=== PATIENT | male | born 1985 | race Caucasian/White ===

== ENCOUNTER 2016-09-08 16:24 | Emergency (ER) | payer OTHER ==
--- NOTE | 2016-09-08 17:09 | ED ORDER SUMMARY ---
..... Patient: FATIMAH MARSHALL II OrderSheet [facility] VisitID: [id number] [address] [place] [address] 30y, M Registration Date/Time: 09/08/2016 ORDER SHEET Weight: 80.7 kg (stated) Allergies: No Known Drug Allergy GENERAL ORDERS: MEDICATION ORDERS: Clindamycin PO 300 mg (NOW) (16:59 09/08/2016 [facility] (Ack 16:59 DDean R.N.) (17:30 DDean R.N.) Prednisone PO 60 mg (NOW) (16:59 09/08/2016 Adriana MCGARRY) (Ack 17:00 DDean R.N.) (17:31 DDean R.N.) IV FLUIDS: ORDER SHEET NOTES: [Electronically signed by Joyce Silva R.N. (23:30 09/08/2016)] [Electronically signed by Rafa Nath DO (09:52 09/09/2016)] [Electronically locked/signed by Joyce Silva R.N. (23:30 09/08/2016)]
--- NOTE | 2016-09-08 17:09 | ED CLINICAL REPORT ---
Clinical Report - Physicians/Mid Levels [facility] [address] [place] [address] 09/08/2016 16:25 Patient: FATIMAH MARSHALL II Time Seen: 16:54. Arrived- By private vehicle. Historian- patient. Note: Patient has a primary care physician; PCP referred patient for evaluation. HISTORY OF PRESENT ILLNESS Chief Complaint: SORE THROAT. This started about 2 weeks ago and is still present. It was gradual in onset and has been waxing/waning. Pain described as moderate. The patient has had a sore throat with pain upon swallowing. He has been able to swallow. Similar symptoms previously: Recent medical care: The patient was seen recently in a clinic. REVIEW OF SYSTEMS No fever, eye discomfort, cough, difficulty breathing or chest pain. No diarrhea, abdominal pain, difficulty with urination, headache or fainting episodes. No joint pain, skin rash, enlarged lymph nodes or vomiting. All systems otherwise negative, except as recorded above. PAST HISTORY Asthma Chronic bronchitis, ADHD Arthritis. Surgeries: Dental surgery. bronchoscopy, EGD for episode of hematemeis. Surgeries: Dental surgery. SOCIAL HISTORY Former smoker, end date 2005. History of drug use: marijuana. No alcohol use. ADDITIONAL NOTES The nursing notes have been reviewed. PHYSICAL EXAM Vital Signs: 09/08/2016 16:55 BP: 132/89. HR: 88. RR: 18. O2 saturation: 100%. Temp: 98.4 F. Pain level now: 7/10. Appearance: Alert. No acute distress. Head: Normal external inspection. Eyes: Pupils equal, round and reactive to light. Conjunctivae and eyelids normal. ENT: Ears normal. Nose normal. Small left-sided peritonsillar mass (slight asymmetry). No pointing. Lips normal. Gums normal. No trismus present. No tonsillar exudate. Neck: Normal inspection. Moderate left anterior neck lymphadenopathy present. Trachea midline. Neck supple. CVS: Normal heart rate and rhythm. Heart sounds normal. Pulses normal. No cardiac murmur. Respiratory: No respiratory distress. Breath sounds normal. Abdomen: Soft and nontender. Skin: Normal skin color. No rash. Normal skin turgor. Extremities: Extremities exhibit normal ROM. Extremities nontender. Neuro: Oriented X 3. No motor deficit. LABS, X-RAYS, AND EKG Pulse Oximetry: 09/08/2016 16:55 O2 saturation: 100%. (FIO2 - room air). Interpretation: normal. PROGRESS AND PROCEDURES Course of Care: Prednisone 60 mg PO given. Clindamycin 300 mg PO given. Mild posterior pharyngeal asymmetry - left more prominent. No airway compromise. No systemic symptoms. Pt has been taking amoxicillin. Recent strep neg and mono spot neg as well. No indication for emergent surgical procedure. Pt will be referred to ENT (should be seen in 24-48 hours. Patient/family counseled. Old ED records reviewed. Disposition: Discharged. Condition: stable and improved. CLINICAL IMPRESSION Acute streptococcal pharyngitis Possible left peritonsillar abscess. No airway obstruction. INSTRUCTIONS Do not work for three days. Drink plenty of fluids. Warnings: Further evaluation is necessary. It is very important to follow up with a physician. GENERAL WARNINGS: Return or contact your physician immediately if your condition worsens or changes unexpectedly, if not improving as expected, or if other problems arise. Prescription Medications: Prednisone 20 mg: take 3 orally every day for 5 days. Dispense fifteen (15). No refills. Cleocin 300 mg: take 1 capsule orally every 6 hours for 7 days. No refills. Substitution is permissible. OTC Medications: Acetaminophen (available over the counter): take according to label instructions. Motrin (available over the counter): take according to label instructions. Follow-up with: Keith Neville MD, ENT, , [address], , [place], [address] Follow up tomorrow. Follow-up with: Johnny Funez MD, [facility], , [address] [facility], , [place], [address] Follow up in about two days. (Electronically signed by Rafa Nath DO 09/09/2016 9:52)
--- NOTE | 2016-09-08 17:09 | ED ORDER SUMMARY ---
..... Patient: FATIMAH MARSHALL II OrderSheet [facility] VisitID: [id number] [address] [place] [address] 30y, M Registration Date/Time: 09/08/2016 ORDER SHEET Weight: 80.7 kg (stated) Allergies: No Known Drug Allergy GENERAL ORDERS: MEDICATION ORDERS: Clindamycin PO 300 mg (NOW) (16:59 [facility]08[facility] (Ack 16:59 DDean R.N.) (17:30 DDean R.N.) Prednisone PO 60 mg (NOW) (16:59 09/08/2016 Adriana MCGARRY) (Ack 17:00 DDean R.N.) (17:31 DDean R.N.) IV FLUIDS: ORDER SHEET NOTES: [Electronically signed by Joyce Silva R.N. (23:30 09/08/2016)] [Electronically signed by Rafa Nath DO (09:52 09/09/2016)] [Electronically locked/signed by Joyce Silva R.N. (23:30 09/08/2016)]
--- NOTE | 2016-09-08 17:09 | ED NURSING NOTES ---
Clinical Report - Nurses [facility] [address] [place] [address] 09/08/2016 16:25 Patient: FATIMAH MARSHALL II TRIAGE Triage time 1655. Acuity: LEVEL 4. Chief Complaint: SORE THROAT and (Pt in by PCP direction, has been seen in office for sore throat x 2, was neg for strep and mono, has been getting worse dispite antibiotics , c/o left thorat swelling). 16:55. --17:06 Joyce Silva R.N. 16:55 09/08/16. BP: 132/89. HR: 88. RR: 18. O2 saturation: 100%. Temp: 98.4 F. Pain level now: 10/04. --17:06 Joyce Silva R.N. Weight: 80.7 kg stated. Height/Length: 67 inches Per Patient. BMI: 27.9. --17:03 Joyce Silva R.N. Medications amoxicillin ran out about 9 days ago. --17:05 Joyce Silva R.N. tylenol 1000mg 0730. --17:05 Joyce Silva R.N. Benadryl 25mg po at 2200. --17:06 Joyce Silva R.N. sudafed 2 tabs (hasn't taken for a couple of days) . --17:06 Joyce Silva R.N. Allergies No Known Drug Allergy. --17:05 Joyce Silva R.N. History Arrived by private vehicle. Historian: patient. Unaccompanied. Primary physician (talia). Reports enlarged lymph nodes. PAST MEDICAL HX: ( asthma, ADHD). SOCIAL HX: Former smoker (quit 11 years ago, was a a 1/2 ppd smoker for 6 years). Occasional alcohol use. (quit 3 years ago). History of drug use: marijuana. --17:06 Joyce Silva R.N. ADDITIONAL SURGERIES: Dental Surgery. --17:02 Joyce Silva R.N. Interventions ID band on patient. To treatment room. --17:06 Joyce Silva R.N. PHYSICAL ASSESSMENT 16:55. Ambulatory to room. GENERAL / NEURO / PSYCH: Alert. Oriented X 4. Appears anxious. HEENT: Voice within normal limits. ( swelling to left gland area, c/o sore throat " all over "). RESPIRATORY: Respirations not labored. CVS: Capillary refill less than 2 seconds. SKIN: Skin is warm and dry. --17:07 Joyce Silva R.N. NURSING PROGRESS NOTES 16:55. Head of bed elevated. Reassurance given. Patient identifiers checked. Call light placed in reach. Side rails up. Bed placed in lowest position. Patient ready for evaluation- chart flagged. --17:06 Joyce Silva R.N. 17:10 09/08/2016 Clindamycin PO Capsules 300 mg given. Allergies verified and confirmed 5 rights. --17:30 Joyce Silva R.N. 17:10 09/08/2016 Prednisone PO Tablets 60 mg given. Allergies verified and confirmed 5 rights. --17:31 Joyce Silva R.N. 17:10 Pt given meds and a sandwich. also given DC instructions. --17:31 Joyce Silva R.N. DISPOSITION / DISCHARGE 17:10. Condition at departure: unchanged and stable. No learning barriers present. Discharge instructions provided and reviewed with the patient. Reviewed medication(s) (medrol dosepack , clindamycin, motrin). Reviewed referral to an ear, nose, and throat specialist (dentist). Patient verbalized understanding. Written instructions provided in [place]. The patient was discharged home and unaccompanied at time of discharge. He left the Emergency Department ambulatory and via private vehicle. Patient driving. --17:32 Joyce Silva R.N. 17:07 09/08/16. BP: deferred. HR: deferred. RR: deferred. O2 saturation: deferred. Temp: deferred. Pain level now: 10/04. --17:32 Joyce Silva R.N. Locked/Released at 09/08/2016 23:30 by Joyce Silva R.N.
--- NOTE | 2016-09-08 17:09 | ED NURSING NOTES ---
Clinical Report - Nurses [facility] [address] [place] [address] 09/08/2016 16:25 Patient: FATIMAH MARSHALL II TRIAGE Triage time 1655. Acuity: LEVEL 4. Chief Complaint: SORE THROAT and (Pt in by PCP direction, has been seen in office for sore throat x 2, was neg for strep and mono, has been getting worse dispite antibiotics , c/o left thorat swelling). 16:55. --17:06 Joyce Silva R.N. 16:55 09/08/16. BP: 132/89. HR: 88. RR: 18. O2 saturation: 100%. Temp: 98.4 F. Pain level now: 10/04. --17:06 Joyce Silva R.N. Weight: 80.7 kg stated. Height/Length: 67 inches Per Patient. BMI: 27.9. --17:03 Joyce Silva R.N. Medications amoxicillin ran out about 9 days ago. --17:05 Joyce Silva R.N. tylenol 1000mg 0730. --17:05 Joyce Silva R.N. Benadryl 25mg po at 2200. --17:06 Joyce Silva R.N. sudafed 2 tabs (hasn't taken for a couple of days) . --17:06 Joyce Silva R.N. Allergies No Known Drug Allergy. --17:05 Joyce Silva R.N. History Arrived by private vehicle. Historian: patient. Unaccompanied. Primary physician (talia). Reports enlarged lymph nodes. PAST MEDICAL HX: ( asthma, ADHD). SOCIAL HX: Former smoker (quit 11 years ago, was a a 1/2 ppd smoker for 6 years). Occasional alcohol use. (quit 3 years ago). History of drug use: marijuana. --17:06 Joyce Silva R.N. ADDITIONAL SURGERIES: Dental Surgery. --17:02 Joyce Silva R.N. Interventions ID band on patient. To treatment room. --17:06 Joyce Silva R.N. PHYSICAL ASSESSMENT 16:55. Ambulatory to room. GENERAL / NEURO / PSYCH: Alert. Oriented X 4. Appears anxious. HEENT: Voice within normal limits. ( swelling to left gland area, c/o sore throat " all over "). RESPIRATORY: Respirations not labored. CVS: Capillary refill less than 2 seconds. SKIN: Skin is warm and dry. --17:07 Joyce Silva R.N. NURSING PROGRESS NOTES 16:55. Head of bed elevated. Reassurance given. Patient identifiers checked. Call light placed in reach. Side rails up. Bed placed in lowest position. Patient ready for evaluation- chart flagged. --17:06 Joyce Silva R.N. 17:10 09/08/2016 Clindamycin PO Capsules 300 mg given. Allergies verified and confirmed 5 rights. --17:30 Joyce Silva R.N. 17:10 09/08/2016 Prednisone PO Tablets 60 mg given. Allergies verified and confirmed 5 rights. --17:31 Joyce Silva R.N. 17:10 Pt given meds and a sandwich. also given DC instructions. --17:31 Joyce Silva R.N. DISPOSITION / DISCHARGE 17:10. Condition at departure: unchanged and stable. No learning barriers present. Discharge instructions provided and reviewed with the patient. Reviewed medication(s) (medrol dosepack , clindamycin, motrin). Reviewed referral to an ear, nose, and throat specialist (circle [facility]). Patient verbalized understanding. Written instructions provided in Syriac. The patient was discharged home and unaccompanied at time of discharge. He left the Emergency Department ambulatory and via private vehicle. Patient driving. --17:32 Joyce Silva R.N. 17:07 09/08/16. BP: deferred. HR: deferred. RR: deferred. O2 saturation: deferred. Temp: deferred. Pain level now: 10/04. --17:32 Joyce Silva R.N. Locked/Released at 09/08/2016 23:30 by Joyce Silva R.N.
--- NOTE | 2016-09-08 17:09 | ED CLINICAL REPORT ---
Clinical Report - Physicians/Mid Levels [facility] [address] [place] [address] 09/08/2016 16:25 Patient: FATIMAH MARSHALL II Time Seen: 16:54. Arrived- By private vehicle. Historian- patient. Note: Patient has a primary care physician; PCP referred patient for evaluation. HISTORY OF PRESENT ILLNESS Chief Complaint: SORE THROAT. This started about 2 weeks ago and is still present. It was gradual in onset and has been waxing/waning. Pain described as moderate. The patient has had a sore throat with pain upon swallowing. He has been able to swallow. Similar symptoms previously: Recent medical care: The patient was seen recently in a clinic. REVIEW OF SYSTEMS No fever, eye discomfort, cough, difficulty breathing or chest pain. No diarrhea, abdominal pain, difficulty with urination, headache or fainting episodes. No joint pain, skin rash, enlarged lymph nodes or vomiting. All systems otherwise negative, except as recorded above. PAST HISTORY Asthma Chronic bronchitis, ADHD Arthritis. Surgeries: Dental surgery. bronchoscopy, EGD for episode of hematemeis. Surgeries: Dental surgery. SOCIAL HISTORY Former smoker, end date 2005. History of drug use: marijuana. No alcohol use. ADDITIONAL NOTES The nursing notes have been reviewed. PHYSICAL EXAM Vital Signs: 09/08/2016 16:55 BP: 132/89. HR: 88. RR: 18. O2 saturation: 100%. Temp: 98.4 F. Pain level now: 7/10. Appearance: Alert. No acute distress. Head: Normal external inspection. Eyes: Pupils equal, round and reactive to light. Conjunctivae and eyelids normal. ENT: Ears normal. Nose normal. Small left-sided peritonsillar mass (slight asymmetry). No pointing. Lips normal. Gums normal. No trismus present. No tonsillar exudate. Neck: Normal inspection. Moderate left anterior neck lymphadenopathy present. Trachea midline. Neck supple. CVS: Normal heart rate and rhythm. Heart sounds normal. Pulses normal. No cardiac murmur. Respiratory: No respiratory distress. Breath sounds normal. Abdomen: Soft and nontender. Skin: Normal skin color. No rash. Normal skin turgor. Extremities: Extremities exhibit normal ROM. Extremities nontender. Neuro: Oriented X 3. No motor deficit. LABS, X-RAYS, AND EKG Pulse Oximetry: 09/08/2016 16:55 O2 saturation: 100%. (FIO2 - room air). Interpretation: normal. PROGRESS AND PROCEDURES Course of Care: Prednisone 60 mg PO given. Clindamycin 300 mg PO given. Mild posterior pharyngeal asymmetry - left more prominent. No airway compromise. No systemic symptoms. Pt has been taking amoxicillin. Recent strep neg and mono spot neg as well. No indication for emergent surgical procedure. Pt will be referred to ENT (should be seen in 24-48 hours. Patient/family counseled. Old ED records reviewed. Disposition: Discharged. Condition: stable and improved. CLINICAL IMPRESSION Acute streptococcal pharyngitis Possible left peritonsillar abscess. No airway obstruction. INSTRUCTIONS Do not work for three days. Drink plenty of fluids. Warnings: Further evaluation is necessary. It is very important to follow up with a physician. GENERAL WARNINGS: Return or contact your physician immediately if your condition worsens or changes unexpectedly, if not improving as expected, or if other problems arise. Prescription Medications: Prednisone 20 mg: take 3 orally every day for 5 days. Dispense fifteen (15). No refills. Cleocin 300 mg: take 1 capsule orally every 6 hours for 7 days. No refills. Substitution is permissible. OTC Medications: Acetaminophen (available over the counter): take according to label instructions. Motrin (available over the counter): take according to label instructions. Follow-up with: Keith Neville MD, ENT, , [address], , [place], [id number] Follow up tomorrow. Follow-up with: Johnny Funez MD, [facility], , [address] [facility], , [place], [address] Follow up in about two days. (Electronically signed by Rafa Nath DO 09/09/2016 9:52)
--- NOTE | 2016-09-09 09:53 | ED DISCHARGE INSTRUCTIONS ---
Patient: FATIMAH MARSHALL II General Instructions [facility] VisitID: [id number] [address] [place] [place], [place] [id number] 30y, M Registration Date/Time: 09/08/2016 Acute streptococcal pharyngitis INSTRUCTIONS Do not work for three days. Drink plenty of fluids. Warnings: Further evaluation is necessary. It is very important to follow up with a physician. GENERAL WARNINGS: Return or contact your physician immediately if your condition worsens or changes unexpectedly, if not improving as expected, or if other problems arise. Prescription Medications: Prednisone 20 mg: take 3 orally every day for 5 days. Dispense fifteen (15). No refills. Cleocin 300 mg: take 1 capsule orally every 6 hours for 7 days. No refills. Substitution is permissible. OTC Medications: Acetaminophen (available over the counter): take according to label instructions. Motrin (available over the counter): take according to label instructions. Follow-up with: Keith Neville MD, ENT, , [address], , [place], [id number] Follow up tomorrow. Follow-up with: Johnny Funez MD, [facility], , [address] [facility], [place] [phone] Follow up in about two days. ADDITIONAL INFORMATION Pharyngitis: Strep [Presumed] Your illness has the signs of a strep throat infection. Strep throat is a contagious illness. It is spread by coughing, kissing or by touching others after touching your mouth or nose. Symptoms include throat pain worse with swallowing, aching all over, headache and fever. You will be treated with an antibiotic, which should make you start to feel better within 1-2 days. Home Care: Rest at home and drink plenty of fluids to avoid dehydration. No school or work for the first two days on antibiotics. You will not be contagious after this time, and if you are feeling better, you can return to school or work. Take your antibiotics for a full 10 days, even if you feel better after the first few days of treatment. This is very important to prevent complications from the strep infection (such as heart or kidney disease). Children: Use acetaminophen (Tylenol) for fever, fussiness or discomfort. In infants over six months of age, you may use ibuprofen (Children's Motrin) instead of Tylenol. [NOTE: If your child has chronic liver or kidney disease or ever had a stomach ulcer or GI bleeding, talk with your doctor before using these medicines.] (Aspirin should never be used in anyone under 18 years of age who is ill with a fever. It may cause severe liver damage.) Adults: You may use acetaminophen (Tylenol) or ibuprofen (Motrin, Advil) to control pain or fever, unless another medicine was prescribed for this. [NOTE: If you have chronic liver or kidney disease or ever had a stomach ulcer or GI bleeding, talk with your doctor before using these medicines.] Throat lozenges or sprays (Chloraseptic and others) will reduce pain. Gargling with warm salt water will also reduce throat pain. Dissolve 1/2 teaspoon of salt in 1 glass of warm water. This is especially useful just before meals. Follow Up with your doctor or as directed by our staff if you are not improving over the next week. Get Prompt Medical Attention if any of the following occur: Fever over 100.5F (38.0C) oral, or over 101.5F (38.6C) rectal for more than three days New or worsening ear pain, sinus pain or headache Painful lumps in the back of your neck Unable to swallow liquids or open your mouth wide due to throat pain Trouble breathing or noisy breathing Muffled voice New rash Peritonsillar Abscess Your throat pain is due to an infection in and around the tonsils. This is due to a bacterial infection causing an abscess (collection of pus) to form around the tonsil. This abscess can cause severe pain when swallowing or trying to open your mouth wide. An early abscess may be treated with antibiotics alone. A larger abscess will require surgical drainage plus antibiotics. The bacteria causing this condition may be contagious. It can be spread by coughing, kissing or touching others after you touch your mouth or nose. It may produce a sore throat in others (not necessarily a peritonsillar abscess). Home Care: 1) Take your antibiotics until finished, even if you feel better after the first few days of treatment. This is very important to prevent later problems from this infection (such as heart or kidney disease). 2) If your symptoms are severe, rest at home for the first 2-3 days. 3) Children : Use Tylenol (acetaminophen) for fever, fussiness or discomfort. In infants over six months of age, you may use ibuprofen (Children's Motrin) instead of Tylenol. (Aspirin should never be used in anyone under 18 years of age who is ill with a fever. It may cause severe liver damage.) Adults : For muscle aching or throat pain, you may take ibuprofen (Advil, Motrin) or Tylenol (acetaminophen) unless another pain medicine was prescribed. [ NOTE : If you have chronic liver or kidney disease or ever had a stomach ulcer or GI bleeding, talk with your doctor before using these medicines.] (Aspirin should never be used in anyone under 18 years of age who is ill with a fever. It may cause severe liver damage.) 4) Throat lozenges or sprays (Chloraseptic and others) may help reduce throat pain. This is especially useful just before meals. 5) Gargle with warm salt water four times a day for the first two days. Dissolve 1/2 teaspoon of salt in 1 glass of hot water. Follow Up with your doctor or this facility as advised within 1-2 days. If you are treated with antibiotics alone, it is very important to be rechecked within 24 hours to be sure that the abscess is not getting bigger. Get Prompt Medical Attention if any of the following occur: -- Fever over 100.5 F (38.0 C) oral by the third day of treatment -- Throat pain, neck pain or headache that gets worse -- Unable to swallow liquids or take your medicine -- Trouble breathing or noisy breathing Prednisone Oral tablet What is this medicine? PREDNISONE (PRED ni sone) is a corticosteroid. It is commonly used to treat inflammation of the skin, joints, lungs, and other organs. Common conditions treated include asthma, allergies, and arthritis. It is also used for other conditions, such as blood disorders and diseases of the adrenal glands. How should I use this medicine? Take this medicine by mouth with a glass of water. Follow the directions on the prescription label. Take this medicine with food. If you are taking this medicine once a day, take it in the morning. Do not take more medicine than you are told to take. Do not suddenly stop taking your medicine because you may develop a severe reaction. Your doctor will tell you how much medicine to take. If your doctor wants you to stop the medicine, the dose may be slowly lowered over time to avoid any side effects. Talk to your transportation clerk regarding the use of this medicine in children. Special care may be needed. What side effects may I notice from receiving this medicine? Side effects that you should report to your doctor or health rental boats caretaker as soon as possible: allergic reactions like skin rash, itching or hives, swelling of the face, lips, or tongue changes in emotions or moods changes in vision depressed mood eye pain fever or chills, cough, sore throat, pain or difficulty passing urine increased thirst swelling of ankles, feet Side effects that usually do not require medical attention (report to your doctor or health rental boats caretaker if they continue or are bothersome): confusion, excitement, restlessness headache nausea, vomiting skin problems, acne, thin and shiny skin trouble sleeping weight gain What may interact with this medicine? Do not take this medicine with any of the following medications: metyrapone mifepristone This medicine may also interact with the following medications: aminoglutethimide amphotericin B aspirin and aspirin-like medicines barbiturates certain medicines for diabetes, like glipizide or glyburide cholestyramine cholinesterase inhibitors cyclosporine digoxin diuretics ephedrine female hormones, like estrogens and control pills isoniazid ketoconazole NSAIDS, medicines for pain and inflammation, like ibuprofen or naproxen phenytoin rifampin toxoids vaccines warfarin What if I miss a dose? If you miss a dose, take it as soon as you can. If it is almost time for your next dose, talk to your doctor or health rental boats caretaker. You may need to miss a dose or take an extra dose. Do not take double or extra doses without advice. Where should I keep my medicine? Keep out of the reach of children. Store at room temperature between 15 and 30 degrees C (59 and 86 degrees F). Protect from light. Keep container tightly closed. Throw away any unused medicine after the expiration date. What should I tell my health care provider before I take this medicine? They need to know if you have any of these conditions: Sonny's syndrome diabetes glaucoma heart disease high blood pressure infection (especially a virus infection such as chickenpox, cold sores, or herpes) kidney disease liver disease mental illness myasthenia gravis osteoporosis seizures stomach or intestine problems thyroid disease an unusual or allergic reaction to lactose, prednisone, other medicines, foods, dyes, or preservatives or trying to get breast-feeding What should I watch for while using this medicine? Visit your doctor or health rental boats caretaker for regular checks on your progress. If you are taking this medicine over a prolonged period, carry an identification card with your name and address, the type and dose of your medicine, and your doctor's name and address. This medicine may increase your risk of getting an infection. Tell your doctor or health rental boats caretaker if you are around anyone with measles or chickenpox, or if you develop sores or blisters that do not heal properly. If you are going to have surgery, tell your doctor or health rental boats caretaker that you have taken this medicine within the last twelve months. Ask your doctor or health rental boats caretaker about your diet. You may need to lower the amount of salt you eat. This medicine may affect blood sugar levels. If you have diabetes, check with your doctor or health rental boats caretaker before you change your diet or the dose of your diabetic medicine. Clindamycin Hydrochloride Oral capsule What is this medicine? CLINDAMYCIN (KLIN da BUDDY sin) is a lincosamide antibiotic. It is used to treat certain kinds of bacterial infections. It will not work for colds, flu, or other viral infections. How should I use this medicine? Take this medicine by mouth with a full glass of water. Follow the directions on the prescription label. You can take this medicine with food or on an empty stomach. If the medicine upsets your stomach, take it with food. Take your medicine at regular intervals. Do not take your medicine more often than directed. Take all of your medicine as directed even if you think your are better. Do not skip doses or stop your medicine early. Talk to your transportation clerk regarding the use of this medicine in children. Special care may be needed. What side effects may I notice from receiving this medicine? Side effects that you should report to your doctor or health rental boats caretaker as soon as possible: allergic reactions like skin rash, itching or hives, swelling of the face, lips, or tongue dark urine pain on swallowing redness, blistering, peeling or loosening of the skin, including inside the mouth unusual bleeding or bruising unusually weak or tired yellowing of eyes or skin Side effects that usually do not require medical attention (report to your doctor or health rental boats caretaker if they continue or are bothersome): diarrhea itching in the rectal or genital area joint pain nausea, vomiting stomach pain What may interact with this medicine? chloramphenicol erythromycin kaolin products What if I miss a dose? If you miss a dose, take it as soon as you can. If it is almost time for your next dose, take only that dose. Do not take double or extra doses. Where should I keep my medicine? Keep out of the reach of children. Store at room temperature between 20 and 25 degrees C (68 and 77 degrees F). Throw away any unused medicine after the expiration date. What should I tell my health care provider before I take this medicine? They need to know if you have any of these conditions: kidney disease liver disease stomach problems like colitis an unusual or allergic reaction to clindamycin, lincomycin, or other medicines, foods, dyes like tartrazine or preservatives or trying to get breast-feeding What should I watch for while using this medicine? Tell your doctor or healthcare professional if your symptoms do not start to get better or if they get worse. Do not treat diarrhea with over the counter products. Contact your doctor if you have diarrhea that lasts more than 2 days or if it is severe and watery. Acetaminophen Oral tablet What is this medicine? ACETAMINOPHEN (a set a NELL moe fen) is a pain reliever. It is used to treat mild pain and fever. How should I use this medicine? Take this medicine by mouth with a glass of water. Follow the directions on the package or prescription label. Take your medicine at regular intervals. Do not take your medicine more often than directed. Talk to your transportation clerk regarding the use of this medicine in children. While this drug may be prescribed for children as young as 6 years of age for selected conditions, precautions do apply. What side effects may I notice from receiving this medicine? Side effects that you should report to your doctor or health rental boats caretaker as soon as possible: allergic reactions like skin rash, itching or hives, swelling of the face, lips, or tongue breathing problems fever or sore throat redness, blistering, peeling or loosening of the skin, including inside the mouth trouble passing urine or change in the amount of urine unusual bleeding or bruising unusually weak or tired yellowing of the eyes or skin Side effects that usually do not require medical attention (report to your doctor or health rental boats caretaker if they continue or are bothersome): headache nausea, stomach upset What may interact with this medicine? alcohol imatinib isoniazid other medicines with acetaminophen What if I miss a dose? If you miss a dose, take it as soon as you can. If it is almost time for your next dose, take only that dose. Do not take double or extra doses. Where should I keep my medicine? Keep out of reach of children. Store at room temperature between 20 and 25 degrees C (68 and 77 degrees F). Protect from moisture and heat. Throw away any unused medicine after the expiration date. What should I tell my health care provider before I take this medicine? They need to know if you have any of these conditions: if you frequently drink alcohol containing drinks liver disease an unusual or allergic reaction to acetaminophen, other medicines, foods, dyes or preservatives or trying to get breast-feeding What should I watch for while using this medicine? Tell your doctor or health rental boats caretaker if the pain lasts more than 10 days (5 days for children), if it gets worse, or if there is a new or different kind of pain. Also, check with your doctor if a fever lasts for more than 3 days. Do not take other medicines that contain acetaminophen with this medicine. Always read labels carefully. If you have questions, ask your doctor or pharmacist. If you take too much acetaminophen get medical help right away. Too much acetaminophen can be very dangerous and cause liver damage. Even if you do not have symptoms, it is important to get help right away. Ibuprofen Oral tablet What is this medicine? IBUPROFEN (eye BYOO proe fen) is a non-steroidal anti-inflammatory drug (NSAID). It is used for dental pain, fever, headaches or migraines, osteoarthritis, rheumatoid arthritis, or painful monthly periods. It can also relieve minor aches and pains caused by a cold, flu, or sore throat. How should I use this medicine? Take this medicine by mouth with a glass of water. Follow the directions on the prescription label. Take this medicine with food if your stomach gets upset. Try to not lie down for at least 10 minutes after you take the medicine. Take your medicine at regular intervals. Do not take your medicine more often than directed. A special MedGuide will be given to you by the pharmacist with each prescription and refill. Be sure to read this information carefully each time. Talk to your transportation clerk regarding the use of this medicine in children. Special care may be needed. What side effects may I notice from receiving this medicine? Side effects that you should report to your doctor or health rental boats caretaker as soon as possible: allergic reactions like skin rash, itching or hives, swelling of the face, lips, or tongue black or bloody stools, blood in the urine or in vomit breathing problems changes in vision chest pain general ill feeling or flu-like symptoms nausea or vomiting redness, blistering, peeling or loosening of the skin, including inside the mouth slurred speech or weakness on one side of the body stomach pain unexplained weight gain or swelling unusually weak or tired yellowing of eyes or skin Side effects that usually do not require medical attention (report to your doctor or health rental boats caretaker if they continue or are bothersome): constipation or diarrhea dizziness gas or heartburn stomach upset What may interact with this medicine? Do not take this medicine with any of the following medications: cidofovir ketorolac methotrexate pemetrexed This medicine may also interact with the following medications: alcohol aspirin diuretics lithium other drugs for inflammation like prednisone warfarin What if I miss a dose? If you miss a dose, take it as soon as you can. If it is almost time for your next dose, take only that dose. Do not take double or extra doses. Where should I keep my medicine? Keep out of the reach of children. Store at room temperature between 15 and 30 degrees C (59 and 86 degrees F). Keep container tightly closed. Throw away any unused medicine after the expiration date. What should I tell my health care provider before I take this medicine? They need to know if you have any of these conditions: asthma cigarette smoker drink more than 3 alcohol containing drinks a day heart disease or circulation problems such as heart failure or leg edema (fluid retention) high blood pressure kidney disease liver disease stomach bleeding or ulcers an unusual or allergic reaction to ibuprofen, aspirin, other NSAIDS, other medicines, foods, dyes, or preservatives or trying to get breast-feeding What should I watch for while using this medicine? Tell your doctor or healthcare professional if your symptoms do not start to get better or if they get worse. This medicine does not prevent heart attack or stroke. In fact, this medicine may increase the chance of a heart attack or stroke. The chance may increase with longer use of this medicine and in people who have heart disease. If you take aspirin to prevent heart attack or stroke, talk with your doctor or health rental boats caretaker. Do not take other medicines that contain aspirin, ibuprofen, or naproxen with this medicine. Side effects such as stomach upset, nausea, or ulcers may be more likely to occur. Many medicines available without a prescription should not be taken with this medicine. This medicine can cause ulcers and bleeding in the stomach and intestines at any time during treatment. Ulcers and bleeding can happen without warning symptoms and can cause . To reduce your risk, do not smoke cigarettes or drink alcohol while you are taking this medicine. You may get drowsy or dizzy. Do not drive, use machinery, or do anything that needs mental alertness until you know how this medicine affects you. Do not stand or sit up quickly, especially if you are an older patient. This reduces the risk of dizzy or fainting spells. This medicine can cause you to bleed more easily. Try to avoid damage to your teeth and gums when you brush or floss your teeth. You have been given the following additional information: Pharyngitis, Strep (Presumed) Peritonsillar Abscess Prednisone Oral tablet Clindamycin Hydrochloride Oral capsule Acetaminophen Oral tablet Ibuprofen Oral tablet Do not work for three days. (Electronically signed by Rafa Nath DO 09/09/2016 9:52)
--- NOTE | 2016-09-09 09:53 | ED MAR SUMMARY ---
..... Medication Administration Record Merged With [facility] [address] [place] [address] Patient: FATIMAH MARSHALL Visit ID: [id number] 30y, M Weight: 80.7 kg Height/Length: 67 in BMI: 27.9 ALLERGIES: No Known Drug Allergy Given 17:09/08/2016 Joyce Silva R.N. Medication Administered: CLINDAMYCIN [PO], Dose: 300 mg Capsules PO. Medication Ordered: Clindamycin PO 300 mg (NOW). Given 17:09/08/2016 Joyce Silva R.N. Medication Administered: PREDNISONE [PO], Dose: 60 mg Tablets PO. Medication Ordered: Prednisone PO 60 mg (NOW).
--- NOTE | 2016-09-09 09:53 | ED MAR SUMMARY ---
..... Medication Administration Record [facility] [address] [place] [address] Patient: FATIMAH MARSHALL Visit ID: [id number] 30y, M Weight: 80.7 kg Height/Length: 67 in BMI: 27.9 ALLERGIES: No Known Drug Allergy Given 17:09/08/2016 Joyce Silva R.N. Medication Administered: CLINDAMYCIN [PO], Dose: 300 mg Capsules PO. Medication Ordered: Clindamycin PO 300 mg (NOW). Given 17:09/08/2016 Joyce Silva R.N. Medication Administered: PREDNISONE [PO], Dose: 60 mg Tablets PO. Medication Ordered: Prednisone PO 60 mg (NOW).
--- NOTE | 2016-09-09 09:53 | ED MED RECONCILIATION SUMMARY ---
Patient: FATIMAH MARSHALL II Medication Reconciliation Report [facility] VisitID: [id number] [address] [place] [address] 30y, M Registration Date/Time: 09/08/2016 Weight: 80.7 kg Height/Length: 67 in. BMI: 27.9 ALLERGIES: No Known Drug Allergy The patient's Home Medications are listed below: THE FOLLOWING MEDICATIONS NEED TO BE RECONCILED: amoxicillin ran out about 9 days ago Benadryl 25mg po at 2200 sudafed 2 tabs (hasn't taken for a couple of days) tylenol 1000mg 0730 The source(s) of the original Home Medication information: Not obtained. The following Medications were given to the patient in the Emergency Department: Clindamycin [PO] PO 300 mg, administered: 09/08/2016 5:10:00 PM Prednisone [PO] PO 60 mg, administered: 09/08/2016 5:10:00 PM The following Medications were prescribed to the patient: Acetaminophen (available over the counter): take according to label instructions. -- Rafa Nath DO Motrin (available over the counter): take according to label instructions. -- Rafa Nath DO Prednisone 20 mg: take 3 orally every day for 5 days. Dispense fifteen (15). No refills. -- Rafa Nath DO Cleocin 300 mg: take 1 capsule orally every 6 hours for 7 days. No refills. Substitution is permissible. -- Rafa Nath DO
--- NOTE | 2016-09-09 09:53 | ED MED RECONCILIATION SUMMARY ---
Patient: FATIMAH MARSHALL II Medication Reconciliation Report [facility] VisitID: [id number] [address] [place] [address] 30y, M Registration Date/Time: 09/08/2016 Weight: 80.7 kg Height/Length: 67 in. BMI: 27.9 ALLERGIES: No Known Drug Allergy The patient's Home Medications are listed below: THE FOLLOWING MEDICATIONS NEED TO BE RECONCILED: amoxicillin ran out about 9 days ago Benadryl 25mg po at 2200 sudafed 2 tabs (hasn't taken for a couple of days) tylenol 1000mg 0730 The source(s) of the original Home Medication information: Not obtained. The following Medications were given to the patient in the Emergency Department: Clindamycin [PO] PO 300 mg, administered: 09/08/2016 5:10:00 PM Prednisone [PO] PO 60 mg, administered: 09/08/2016 5:10:00 PM The following Medications were prescribed to the patient: Acetaminophen (available over the counter): take according to label instructions. -- Rafa Nath DO Motrin (available over the counter): take according to label instructions. -- Rafa Nath DO Prednisone 20 mg: take 3 orally every day for 5 days. Dispense fifteen (15). No refills. -- Rafa Nath DO Cleocin 300 mg: take 1 capsule orally every 6 hours for 7 days. No refills. Substitution is permissible. -- Rafa Nath DO
--- NOTE | 2016-09-09 09:53 | ED DISCHARGE INSTRUCTIONS ---
Patient: FATIMAH MARSHALL II General Instructions [facility] VisitID: [id number] [address] [place] [place], [place] [id number] 30y, M Registration Date/Time: 09/08/2016 Acute streptococcal pharyngitis INSTRUCTIONS Do not work for three days. Drink plenty of fluids. Warnings: Further evaluation is necessary. It is very important to follow up with a physician. GENERAL WARNINGS: Return or contact your physician immediately if your condition worsens or changes unexpectedly, if not improving as expected, or if other problems arise. Prescription Medications: Prednisone 20 mg: take 3 orally every day for 5 days. Dispense fifteen (15). No refills. Cleocin 300 mg: take 1 capsule orally every 6 hours for 7 days. No refills. Substitution is permissible. OTC Medications: Acetaminophen (available over the counter): take according to label instructions. Motrin (available over the counter): take according to label instructions. Follow-up with: Keith Neville MD, ENT, , [address], , [place], [id number] Follow up tomorrow. Follow-up with: Johnny Funez MD, Family [facility], , [address] [facility], [place] [id number] Follow up in about two days. ADDITIONAL INFORMATION Pharyngitis: Strep [Presumed] Your illness has the signs of a strep throat infection. Strep throat is a contagious illness. It is spread by coughing, kissing or by touching others after touching your mouth or nose. Symptoms include throat pain worse with swallowing, aching all over, headache and fever. You will be treated with an antibiotic, which should make you start to feel better within 1-2 days. Home Care: Rest at home and drink plenty of fluids to avoid dehydration. No school or work for the first two days on antibiotics. You will not be contagious after this time, and if you are feeling better, you can return to school or work. Take your antibiotics for a full 10 days, even if you feel better after the first few days of treatment. This is very important to prevent complications from the strep infection (such as heart or kidney disease). Children: Use acetaminophen (Tylenol) for fever, fussiness or discomfort. In infants over six months of age, you may use ibuprofen (Children's Motrin) instead of Tylenol. [NOTE: If your child has chronic liver or kidney disease or ever had a stomach ulcer or GI bleeding, talk with your doctor before using these medicines.] (Aspirin should never be used in anyone under 18 years of age who is ill with a fever. It may cause severe liver damage.) Adults: You may use acetaminophen (Tylenol) or ibuprofen (Motrin, Advil) to control pain or fever, unless another medicine was prescribed for this. [NOTE: If you have chronic liver or kidney disease or ever had a stomach ulcer or GI bleeding, talk with your doctor before using these medicines.] Throat lozenges or sprays (Chloraseptic and others) will reduce pain. Gargling with warm salt water will also reduce throat pain. Dissolve 1/2 teaspoon of salt in 1 glass of warm water. This is especially useful just before meals. Follow Up with your doctor or as directed by our staff if you are not improving over the next week. Get Prompt Medical Attention if any of the following occur: Fever over 100.5F (38.0C) oral, or over 101.5F (38.6C) rectal for more than three days New or worsening ear pain, sinus pain or headache Painful lumps in the back of your neck Unable to swallow liquids or open your mouth wide due to throat pain Trouble breathing or noisy breathing Muffled voice New rash Peritonsillar Abscess Your throat pain is due to an infection in and around the tonsils. This is due to a bacterial infection causing an abscess (collection of pus) to form around the tonsil. This abscess can cause severe pain when swallowing or trying to open your mouth wide. An early abscess may be treated with antibiotics alone. A larger abscess will require surgical drainage plus antibiotics. The bacteria causing this condition may be contagious. It can be spread by coughing, kissing or touching others after you touch your mouth or nose. It may produce a sore throat in others (not necessarily a peritonsillar abscess). Home Care: 1) Take your antibiotics until finished, even if you feel better after the first few days of treatment. This is very important to prevent later problems from this infection (such as heart or kidney disease). 2) If your symptoms are severe, rest at home for the first 2-3 days. 3) Children : Use Tylenol (acetaminophen) for fever, fussiness or discomfort. In infants over six months of age, you may use ibuprofen (Children's Motrin) instead of Tylenol. (Aspirin should never be used in anyone under 18 years of age who is ill with a fever. It may cause severe liver damage.) Adults : For muscle aching or throat pain, you may take ibuprofen (Advil, Motrin) or Tylenol (acetaminophen) unless another pain medicine was prescribed. [ NOTE : If you have chronic liver or kidney disease or ever had a stomach ulcer or GI bleeding, talk with your doctor before using these medicines.] (Aspirin should never be used in anyone under 18 years of age who is ill with a fever. It may cause severe liver damage.) 4) Throat lozenges or sprays (Chloraseptic and others) may help reduce throat pain. This is especially useful just before meals. 5) Gargle with warm salt water four times a day for the first two days. Dissolve 1/2 teaspoon of salt in 1 glass of hot water. Follow Up with your doctor or this facility as advised within 1-2 days. If you are treated with antibiotics alone, it is very important to be rechecked within 24 hours to be sure that the abscess is not getting bigger. Get Prompt Medical Attention if any of the following occur: -- Fever over 100.5 F (38.0 C) oral by the third day of treatment -- Throat pain, neck pain or headache that gets worse -- Unable to swallow liquids or take your medicine -- Trouble breathing or noisy breathing Prednisone Oral tablet What is this medicine? PREDNISONE (PRED ni sone) is a corticosteroid. It is commonly used to treat inflammation of the skin, joints, lungs, and other organs. Common conditions treated include asthma, allergies, and arthritis. It is also used for other conditions, such as blood disorders and diseases of the adrenal glands. How should I use this medicine? Take this medicine by mouth with a glass of water. Follow the directions on the prescription label. Take this medicine with food. If you are taking this medicine once a day, take it in the morning. Do not take more medicine than you are told to take. Do not suddenly stop taking your medicine because you may develop a severe reaction. Your doctor will tell you how much medicine to take. If your doctor wants you to stop the medicine, the dose may be slowly lowered over time to avoid any side effects. Talk to your construction project assistant regarding the use of this medicine in children. Special care may be needed. What side effects may I notice from receiving this medicine? Side effects that you should report to your doctor or health primary care nurse as soon as possible: allergic reactions like skin rash, itching or hives, swelling of the face, lips, or tongue changes in emotions or moods changes in vision depressed mood eye pain fever or chills, cough, sore throat, pain or difficulty passing urine increased thirst swelling of ankles, feet Side effects that usually do not require medical attention (report to your doctor or health primary care nurse if they continue or are bothersome): confusion, excitement, restlessness headache nausea, vomiting skin problems, acne, thin and shiny skin trouble sleeping weight gain What may interact with this medicine? Do not take this medicine with any of the following medications: metyrapone mifepristone This medicine may also interact with the following medications: aminoglutethimide amphotericin B aspirin and aspirin-like medicines barbiturates certain medicines for diabetes, like glipizide or glyburide cholestyramine cholinesterase inhibitors cyclosporine digoxin diuretics ephedrine female hormones, like estrogens and control pills isoniazid ketoconazole NSAIDS, medicines for pain and inflammation, like ibuprofen or naproxen phenytoin rifampin toxoids vaccines warfarin What if I miss a dose? If you miss a dose, take it as soon as you can. If it is almost time for your next dose, talk to your doctor or health primary care nurse. You may need to miss a dose or take an extra dose. Do not take double or extra doses without advice. Where should I keep my medicine? Keep out of the reach of children. Store at room temperature between 15 and 30 degrees C (59 and 86 degrees F). Protect from light. Keep container tightly closed. Throw away any unused medicine after the expiration date. What should I tell my health care provider before I take this medicine? They need to know if you have any of these conditions: Sonny's syndrome diabetes glaucoma heart disease high blood pressure infection (especially a virus infection such as chickenpox, cold sores, or herpes) kidney disease liver disease mental illness myasthenia gravis osteoporosis seizures stomach or intestine problems thyroid disease an unusual or allergic reaction to lactose, prednisone, other medicines, foods, dyes, or preservatives or trying to get breast-feeding What should I watch for while using this medicine? Visit your doctor or health primary care nurse for regular checks on your progress. If you are taking this medicine over a prolonged period, carry an identification card with your name and address, the type and dose of your medicine, and your doctor's name and address. This medicine may increase your risk of getting an infection. Tell your doctor or health primary care nurse if you are around anyone with measles or chickenpox, or if you develop sores or blisters that do not heal properly. If you are going to have surgery, tell your doctor or health primary care nurse that you have taken this medicine within the last twelve months. Ask your doctor or health primary care nurse about your diet. You may need to lower the amount of salt you eat. This medicine may affect blood sugar levels. If you have diabetes, check with your doctor or health primary care nurse before you change your diet or the dose of your diabetic medicine. Clindamycin Hydrochloride Oral capsule What is this medicine? CLINDAMYCIN (KLIN da BUDDY sin) is a lincosamide antibiotic. It is used to treat certain kinds of bacterial infections. It will not work for colds, flu, or other viral infections. How should I use this medicine? Take this medicine by mouth with a full glass of water. Follow the directions on the prescription label. You can take this medicine with food or on an empty stomach. If the medicine upsets your stomach, take it with food. Take your medicine at regular intervals. Do not take your medicine more often than directed. Take all of your medicine as directed even if you think your are better. Do not skip doses or stop your medicine early. Talk to your construction project assistant regarding the use of this medicine in children. Special care may be needed. What side effects may I notice from receiving this medicine? Side effects that you should report to your doctor or health primary care nurse as soon as possible: allergic reactions like skin rash, itching or hives, swelling of the face, lips, or tongue dark urine pain on swallowing redness, blistering, peeling or loosening of the skin, including inside the mouth unusual bleeding or bruising unusually weak or tired yellowing of eyes or skin Side effects that usually do not require medical attention (report to your doctor or health primary care nurse if they continue or are bothersome): diarrhea itching in the rectal or genital area joint pain nausea, vomiting stomach pain What may interact with this medicine? chloramphenicol erythromycin kaolin products What if I miss a dose? If you miss a dose, take it as soon as you can. If it is almost time for your next dose, take only that dose. Do not take double or extra doses. Where should I keep my medicine? Keep out of the reach of children. Store at room temperature between 20 and 25 degrees C (68 and 77 degrees F). Throw away any unused medicine after the expiration date. What should I tell my health care provider before I take this medicine? They need to know if you have any of these conditions: kidney disease liver disease stomach problems like colitis an unusual or allergic reaction to clindamycin, lincomycin, or other medicines, foods, dyes like tartrazine or preservatives or trying to get breast-feeding What should I watch for while using this medicine? Tell your doctor or healthcare professional if your symptoms do not start to get better or if they get worse. Do not treat diarrhea with over the counter products. Contact your doctor if you have diarrhea that lasts more than 2 days or if it is severe and watery. Acetaminophen Oral tablet What is this medicine? ACETAMINOPHEN (a set a NELL moe fen) is a pain reliever. It is used to treat mild pain and fever. How should I use this medicine? Take this medicine by mouth with a glass of water. Follow the directions on the package or prescription label. Take your medicine at regular intervals. Do not take your medicine more often than directed. Talk to your construction project assistant regarding the use of this medicine in children. While this drug may be prescribed for children as young as 6 years of age for selected conditions, precautions do apply. What side effects may I notice from receiving this medicine? Side effects that you should report to your doctor or health primary care nurse as soon as possible: allergic reactions like skin rash, itching or hives, swelling of the face, lips, or tongue breathing problems fever or sore throat redness, blistering, peeling or loosening of the skin, including inside the mouth trouble passing urine or change in the amount of urine unusual bleeding or bruising unusually weak or tired yellowing of the eyes or skin Side effects that usually do not require medical attention (report to your doctor or health primary care nurse if they continue or are bothersome): headache nausea, stomach upset What may interact with this medicine? alcohol imatinib isoniazid other medicines with acetaminophen What if I miss a dose? If you miss a dose, take it as soon as you can. If it is almost time for your next dose, take only that dose. Do not take double or extra doses. Where should I keep my medicine? Keep out of reach of children. Store at room temperature between 20 and 25 degrees C (68 and 77 degrees F). Protect from moisture and heat. Throw away any unused medicine after the expiration date. What should I tell my health care provider before I take this medicine? They need to know if you have any of these conditions: if you frequently drink alcohol containing drinks liver disease an unusual or allergic reaction to acetaminophen, other medicines, foods, dyes or preservatives or trying to get breast-feeding What should I watch for while using this medicine? Tell your doctor or health primary care nurse if the pain lasts more than 10 days (5 days for children), if it gets worse, or if there is a new or different kind of pain. Also, check with your doctor if a fever lasts for more than 3 days. Do not take other medicines that contain acetaminophen with this medicine. Always read labels carefully. If you have questions, ask your doctor or pharmacist. If you take too much acetaminophen get medical help right away. Too much acetaminophen can be very dangerous and cause liver damage. Even if you do not have symptoms, it is important to get help right away. Ibuprofen Oral tablet What is this medicine? IBUPROFEN (eye BYOO proe fen) is a non-steroidal anti-inflammatory drug (NSAID). It is used for dental pain, fever, headaches or migraines, osteoarthritis, rheumatoid arthritis, or painful monthly periods. It can also relieve minor aches and pains caused by a cold, flu, or sore throat. How should I use this medicine? Take this medicine by mouth with a glass of water. Follow the directions on the prescription label. Take this medicine with food if your stomach gets upset. Try to not lie down for at least 10 minutes after you take the medicine. Take your medicine at regular intervals. Do not take your medicine more often than directed. A special MedGuide will be given to you by the pharmacist with each prescription and refill. Be sure to read this information carefully each time. Talk to your construction project assistant regarding the use of this medicine in children. Special care may be needed. What side effects may I notice from receiving this medicine? Side effects that you should report to your doctor or health primary care nurse as soon as possible: allergic reactions like skin rash, itching or hives, swelling of the face, lips, or tongue black or bloody stools, blood in the urine or in vomit breathing problems changes in vision chest pain general ill feeling or flu-like symptoms nausea or vomiting redness, blistering, peeling or loosening of the skin, including inside the mouth slurred speech or weakness on one side of the body stomach pain unexplained weight gain or swelling unusually weak or tired yellowing of eyes or skin Side effects that usually do not require medical attention (report to your doctor or health primary care nurse if they continue or are bothersome): constipation or diarrhea dizziness gas or heartburn stomach upset What may interact with this medicine? Do not take this medicine with any of the following medications: cidofovir ketorolac methotrexate pemetrexed This medicine may also interact with the following medications: alcohol aspirin diuretics lithium other drugs for inflammation like prednisone warfarin What if I miss a dose? If you miss a dose, take it as soon as you can. If it is almost time for your next dose, take only that dose. Do not take double or extra doses. Where should I keep my medicine? Keep out of the reach of children. Store at room temperature between 15 and 30 degrees C (59 and 86 degrees F). Keep container tightly closed. Throw away any unused medicine after the expiration date. What should I tell my health care provider before I take this medicine? They need to know if you have any of these conditions: asthma cigarette smoker drink more than 3 alcohol containing drinks a day heart disease or circulation problems such as heart failure or leg edema (fluid retention) high blood pressure kidney disease liver disease stomach bleeding or ulcers an unusual or allergic reaction to ibuprofen, aspirin, other NSAIDS, other medicines, foods, dyes, or preservatives or trying to get breast-feeding What should I watch for while using this medicine? Tell your doctor or healthcare professional if your symptoms do not start to get better or if they get worse. This medicine does not prevent heart attack or stroke. In fact, this medicine may increase the chance of a heart attack or stroke. The chance may increase with longer use of this medicine and in people who have heart disease. If you take aspirin to prevent heart attack or stroke, talk with your doctor or health primary care nurse. Do not take other medicines that contain aspirin, ibuprofen, or naproxen with this medicine. Side effects such as stomach upset, nausea, or ulcers may be more likely to occur. Many medicines available without a prescription should not be taken with this medicine. This medicine can cause ulcers and bleeding in the stomach and intestines at any time during treatment. Ulcers and bleeding can happen without warning symptoms and can cause . To reduce your risk, do not smoke cigarettes or drink alcohol while you are taking this medicine. You may get drowsy or dizzy. Do not drive, use machinery, or do anything that needs mental alertness until you know how this medicine affects you. Do not stand or sit up quickly, especially if you are an older patient. This reduces the risk of dizzy or fainting spells. This medicine can cause you to bleed more easily. Try to avoid damage to your teeth and gums when you brush or floss your teeth. You have been given the following additional information: Pharyngitis, Strep (Presumed) Peritonsillar Abscess Prednisone Oral tablet Clindamycin Hydrochloride Oral capsule Acetaminophen Oral tablet Ibuprofen Oral tablet Do not work for three days. (Electronically signed by Rafa Nath DO 09/09/2016 9:52)
== END 2016-09-08 17:10 | disposition home or self-care (01) ==
LOC: ED SRH 16:24
DX: J02.0 Streptococcal pharyngitis (principal); Z79.1 Long term (current) use of non-steroidal anti-inflammatories (NSAID); Z79.899 Other long term (current) drug therapy; Z87.891 Personal history of nicotine dependence